=== PATIENT | female | born 1990 | race Hispanic/Latino ===

== ENCOUNTER 2016-12-27 10:29 | Emergency (ER) | payer OTHER ==
[~2016-12-27] VITALS: Ht 152.4 cm; Wt 67.0 kg
[~2016-12-27 10:29] MED LIST: AMOXICILLIN500 MG PO; AUGMENTIN875TAB PO; CLARITIN10 M1 PO; DIFLUCAN150 MG PO; DOXYCYCL HYC100 MG PO; FLONASE NASAL50 MCG; FLORASTOR250 M1 PO; MECLIZINE12.5 MG PO; MEDDOSEPAK PO; PREDNISONE20 MG PO
[2016-12-27] MEDS ORDERED: CIMETIDINE400 M1 PO (10:55)
[2016-12-27] MEDS ORDERED: PREDNISONE50 MG PO (10:55)
[2016-12-27] MEDS ORDERED: BENADRYL 50MG C50 MG PO (10:55)
[2016-12-27 11:21] LABS: HEMATOCRIT 39.4 % (37.0-47.0); HEMOGLOBIN 13.3 g/dl (12.0-16.0); IMMATURE GRANULOCYTES 0.3 % (0.0-1.0); MEAN CELL VOLUME 91.2 fL CALC (80.0-100.0); MEAN CORPUSCULAR HGB 30.8 pG CALC (26.0-32.0); MEAN CORPUSCULAR HGB CONC 33.8 g/L CALC (32.0-36.0); NEUT# 6.94 thou/uL (2.00-7.15); RED BLOOD COUNT 4.32 mill/uL (4.20-5.60); RED CELL DISTRI WIDTH 13.5 % (11.5-15.5)
[2016-12-27 11:30] LABS: ALBUMIN 4.6 g/dL (3.2-5.0); ALKALINE PHOSPHATASE 57 u/l (38-126); ANION GAP 17 (6-22 (CALC)); BILIRUBIN, TOTAL 0.6 mg/dL (0.0-1.4); BUN 10 mg/dL (7-17); BUN/CREATININE RATIO 16 (12-20 (CALC)); CALCIUM 9.8 mg/dL (8.4-10.2); CARBON DIOXIDE 26 mmol/l (22-30); CHLORIDE 104 mmol/l (95-108); CREATININE 0.7 mg/dL (0.5-1.0); GFR > 60 ML/MIN (>=60 (CALC)); GFR FOR AFR.AMER. > 60 ML/MIN (>=60 (CALC)); GLUCOSE 94 mg/dL (65-105); POTASSIUM 4.6 mmol/l (3.5-5.1); SGOT/AST 10 u/l (14-36); SGPT/ALT 33 u/l (9-52); SODIUM 141 mmol/l (137-146); TOTAL PROTEIN 7.5 g/dL (6.3-8.2)
[2016-12-27] MEDS ORDERED: EPIPEN 2-P0.3 MG/0.3 IM (11:51)
[2016-12-27 12:20] VITALS: BP 116/67
== END 2016-12-27 12:20 | disposition home or self-care (01) | DRG 607 ==
LOC: ED 10:29
PROVIDERS: Emergency Medicine
DX: L27.2 Dermatitis due to ingested food (principal)